=== PATIENT | female | born 1935 | race Caucasian/White ===

== ENCOUNTER → 2016-08-09 | Outpatient (CLI) | payer MEDICARE, OTHER ==
[~2016-08-09] MED LIST: ASPIR 8181 MG PO; CYCLOBENZAPRINE10 MG PO; HYDROCHLOROTHIA25 MG PO; K-DUR TAB 20 M20 MEQ PO; LISINOPRIL20 MG PO; LOPRESSOR50 MG PO; NORVASC 5 MG TAB5 MG PO; PLAVIX 75 MG TA75 MG PO; SYNTHROID25 MCG PO; ZANTAC 150 MG150 MG PO
== END ==
LOC: MAMO 09:50
DX: Z12.31 Encounter for screening mammogram for malignant neoplasm of breast (principal); Z85.3 Personal history of malignant neoplasm of breast; Z98.890 Other specified postprocedural states; Z92.3 Personal history of irradiation
CPT/HCPCS: G0202

== ENCOUNTER → 2016-09-03 | Outpatient (CLI) | payer MEDICARE, OTHER ==
[~2016-09-03] VITALS: Ht 165.1 cm; Wt 63.0 kg
== END ==
LOC: OPSV 08:59
DX: M81.0 Age-related osteoporosis without current pathological fracture (principal); S22.000A Wedge compression fracture of unspecified thoracic vertebra, initial encounter for closed fracture; S32.000A Wedge compression fracture of unspecified lumbar vertebra, initial encounter for closed fracture; S72.002A Fracture of unspecified part of neck of left femur, initial encounter for closed fracture
CPT/HCPCS: 96372